=== PATIENT | female | born 1960 | race Caucasian/White ===

== ENCOUNTER 2016-08-26 06:41 | Day surgery (SDC) | payer BC, OTHER ==
[~2016-08-26 06:41] MED LIST: Buffered Lidocaine 1% SYRIN* 3 ML/SYR SYRINGE INTRADERM ONE; Dexamethasone IV* 4 MG/ML 1 ML (4 MG) IV SLOW PU ONE; Famotidine IV* 10 MG/ML 2 ML (20 mg) IV ONE
[2016-08-26] MEDS ORDERED: ceFAZolin 2 GM PREMIX(*) 2 GM/50 ML BAG IVPB ONE (07:01)
[2016-08-26] MEDS ORDERED: Famotidine IV* 10 MG/ML 2 ML (20 mg) ONE (07:01)
[2016-08-26] MEDS ORDERED: Dexamethasone IV* 4 MG/ML 1 ML (4 MG) ONE (07:02)
[2016-08-26] MEDS ORDERED: Bupivacaine 0.25% SDV* 30 ML ONE (07:21)
[2016-08-26] MEDS ORDERED: Midazolam* 1 MG/ML 2 ML VIAL (2 MG) ONE (07:37)
[2016-08-26] MEDS ORDERED: fentaNYL* 50 MCG/ML 2 ML VIAL (100 MCG VIAL) ONE ×2 (07:37→08:39)
[2016-08-26] MEDS ORDERED: Ketorolac INJ* 30 MG/ML 1 ML VIAL ONE (07:41)
[2016-08-26] MEDS ORDERED: Propofol* 10 MG/ML 20 ML BTL IV PUSH ONE (07:41)
[2016-08-26] MEDS ORDERED: Lidocaine 2% PF * 5 ML VIAL ONE (07:41)
[2016-08-26] MEDS ORDERED: EPHEDrine (Pressors)* 50 MG/ML VIAL ONE (08:01)
[2016-08-26] MEDS ORDERED: Ondansetron INJ* 2 MG/ML VIAL ONE (08:14)
[2016-08-26] MEDS ORDERED: HYDROcodone/ACETAMIN 5-325 MG* 1 TAB PO PRN (08:17)
[2016-08-26] MEDS ORDERED: fentaNYL* 50 MCG/ML 2 ML VIAL (100 MCG VIAL) IV PRN (08:17)
[2016-08-26] MEDS ORDERED: oxyCODONE/Acetamin 5/325 MG* TAB PO PRN (08:17)
[2016-08-26] MEDS ORDERED: PROCHLORPERAZINE INJ 5 MG/ML 2 ML VIAL IV PRN (08:17)
[2016-08-26] MEDS ORDERED: HYDROcodone/ACETAMIN 5-325 MG* 1 TAB ONE (10:35)
[2016-08-26 10:50] VITALS: BP 124/78
--- NOTE | 2016-08-27 03:03 | OP ---
DATE OF OPERATION: 08/26/16 - [facility] DATE OF : 58 SURGEON: Aniceto Arroyo MD [employer] STATISTICAL PROGRAMMER: AMOR Taveras ANESTHESIOLOGIST: Dr. Hearn. ANESTHESIA: General. 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 OPERATIVE PROCEDURE: Reconstruction of right thumb metacarpophalangeal joint ulnar collateral ligament with split flexor carpi radialis tendon autograft. INDICATIONS: Shweta is a patient who ruptured the collateral ligament several years ago and underwent a repair which failed in the immediate postoperative period. She has been managing with significantly diminished innersole fitter strength and some pain at the end of the day in the thumb. She had an acute exacerbation at work. She presented to my office where workup showed minimal degenerative changes and easily reducible thumb on x-rays. She wanted to proceed with reconstruction. We did talk about the possibility of effusion. She was very much interested in trying to reconstruct the ligament and then she understands that a fusion may be needed in the future if this is unsuccessful or she was found to have persistent pain, but her pain was really minimal and just very mild at the end of the day and on exam she was not really tender over the joint line. I could not reproduce any significant arthritic type pain, so we elected to proceed with the reconstruction. The radial collateral ligament was intact. ESTIMATED BLOOD LOSS: 5 mL. COMPLICATIONS: None. FINDINGS: As expected. DESCRIPTION OF PROCEDURE: Shweta was seen in the preoperative holding area and the correct side, site, and procedure were identified. We then came back to the operating room where anesthesia was induced. The arm was prepped and draped in the usual fashion and a formal time-out was performed. I brought in the mini C-arm and obtained some preoperative stress images. I then went ahead and exsanguinated the arm with Esmarch and then inflated the tourniquet to 250 mmHg. The patient's prior incision was utilized and proximally and distally, the incision was curved back over the dorsum of the metacarpal and proximal phalanx. I then raised a full thickness flap directly off the deep fascial layer. Skin flaps were sewn back. The adductor aponeurosis was identified and split to expose the ulnar aspect of the proximal phalanx and the distal ulnar aspect of the metacarpal head. The prior suture anchor was visualized. There was just degenerative tissue with no real collateral ligament whatsoever or organized collagen fibers were identified. All of the disorganized tissue was debrided back. The metacarpal head collateral recess was freed up with the degenerative disorganized tissue. Once I had excellent exposure, I used sequentially larger drill bits to ultimately drill two holes in the proximal aspect of the proximal phalanx at approximately the 7 and 11 o'clock positions. These two drills holes were connected in the medullary canal but the cortical bridge was maintained. I then used sequentially larger drill bits to drill up to a 3.5 mm drill hole in the collateral recess on the distal metacarpal. This was done just proximal to the visualizable suture anchor and a little bit more dorsal to it as well. Once I had prepared the bony tunnels and I felt like they were of adequate size to receive the tendon graft, I went ahead and irrigated out the wound and we turned our attention to obtain the tendon graft. Through three small transverse incisions over the distal aspect of the forearm, I was able to free up the sheath over the flexor carpi radialis tendon. I delivered the tendon up into the distal wound just proximal to the volar wrist flexion crease. The tendon was split with the 15 blade. I used about a third of the tendon. I put a 26-gauge wire through the split in the tendon and then used a Denise clamp to pass this up into the more proximal 2 wounds sequentially to complete the split of the tendon. The split of the tendon was released proximally and then delivered into the distal wound where it was released distally as well. I then took a 2-0 Ti-Cron suture and performed a whipstitch in the distal centimeter of the tendon graft. I then used a 0 Prolene suture to suture shuttle the tendon graft through the bony tunnel in the proximal phalanx. After I passed the tendon through the bony tunnel, I went ahead and measured how long I would need my tendon graft to be, to be of the correct tension when I placed into the bony tunnel and the metacarpal head. I then cut the tendon graft to the appropriate size. I placed a second whipstitch with 2- 0 Ti-Cron suture in the other end of the tendon graft. Once I had both the tendon ends whipstitched together, I went ahead and placed the two tendon tails from one end of the tendon graft and a Yrn needle was used to pass this out the radial cortex of the bone. A counter incision was made and I delivered the tendon tails directly out of the bone without any interposing soft tissue. I then used the Yrn needle to deliver the other two tails of tendon and delivered this out much more proximally to maintain a nice bony bridge between the two sets of suture tails. I then pulled tension and both ends of the tendon graft docked nicely into the bony tunnel. The joint was held in the fully reduced position with just a few degrees of adduction. The Ti-Cron suture was tied to complete the reconstruction. I then assessed the stability clinically and it was excellent both at 0 and 30 degrees of flexion at the MP joint. It was really very, very stable. I checked some stress radiographs on the mini C-arm. Clinically, I was very happy with the way the reconstruction looked. I therefore went ahead and irrigated out all the wounds. I closed some of the deep periosteal and fascial layers over my suture knot radially and then counter incision was closed with some 4-0 nylon suture. I closed the adductor aponeurosis with some 3-0 Polysorb suture and the skin was then closed with some 4-0 nylon suture. Three forearm wounds were closed with 4-0 nylon suture. All operative areas were infiltrated with 0.25% Marcaine. The wounds were dressed with Xeroform, 4x4's, sterile Webril and then a thumb spica splint was placed with the thumb in gentle adduction. The tourniquet was deflated. All the fingers pinked up immediately. Total tourniquet time was just a little over 90 minutes. The patient was then woken back up and taken to the recovery room in stable condition. [id number]/[facility] #: [id number] [facility] HOSPITALAlicja
--- NOTE | 2016-08-27 18:02 | RAD ---
INDICATION: Right thumb surgery. COMPARISON: Correlation is made with a prior x-ray study of the right thumb from April 01, 2016. TECHNIQUE: 23 seconds of intermittent fluoroscopic guidance were provided and 7 spot films of the right thumb were obtained in the operating room. FINDINGS: There is a surgical strut in the distal first metacarpal. Stress views demonstrate laxity along the medial aspect of the metacarpal phalangeal joint in the region of the ulnar collateral ligament. IMPRESSION: INTRAOPERATIVE CONTROL FILMS. CPT II Codes: [id number]
== END 2016-08-26 11:09 | disposition home or self-care (01) ==
LOC: OREAST 06:41
PROVIDERS: ATTEND Orthopaedic Surgery Hand Surgery
DX: S63.641D Sprain of metacarpophalangeal joint of right thumb, subsequent encounter (principal); Y93.9 Activity, unspecified; Y92.89 Other specified places as the place of occurrence of the external cause; Y99.0 Civilian activity done for income or pay; X50.0XXD Overexertion from strenuous movement or load, subsequent encounter
CPT/HCPCS: 76000; J0690; J1100; J1885; J2250; J2405; J2704; J3010